=== PATIENT | male | born 1985 | race Caucasian/White ===

== ENCOUNTER 2017-09-23 21:06 | Emergency (ER) | payer MEDICAID, SELFPAY ==
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
== END 2017-09-23 22:15 | disposition left against medical advice (07) ==
LOC: ER 21:06
DX: S09.93XA Unspecified injury of face, initial encounter (principal); Y08.89XA Assault by other specified means, initial encounter; Y93.9 Activity, unspecified; Y92.89 Other specified places as the place of occurrence of the external cause; F41.9 Anxiety disorder, unspecified; F32.9 Major depressive disorder, single episode, unspecified
CPT/HCPCS: 70450; 70486; 71046; 72125; 76377; 99284